=== PATIENT | female | born 1940 | race Caucasian/White ===

== ENCOUNTER 2018-10-11 20:45 | Inpatient (IN) | payer MEDICARE, OTHER ==
[~2018-10-11] VITALS: Ht 165.1 cm; Wt 54.6 kg
[~2018-10-11 20:45] MED LIST: ACIDOPHILUS1 EAC7 PO; ATIVAN1 MG ORAL; COLACE100 MG/10 GT; CRANBERRY500 M3 PO; DULCOLAX10 MG RC; FLAGYL500 MG ORAL; FLEET ENEMA133 ML RECTAL; FLORANEX TABLE1 EAC1 PO; HEPARIN SO5000 UNIT2 SUBQ; MAGNESIUM OXID400 M1 ORAL; MILK OF MA400 MG/51 ORAL; MULTIVITAMINS1 EAC2 ORAL; PROTEIN975 MG PO; TYLENOL EXTRA500 MG ORAL; TYLENOL650 MG/20. ORAL; ZOFRAN4 M1 ORAL; ZYPREXA5 MG ORAL
[2018-10-11 20:50] VITALS: BP 130/75
--- NOTE | 2018-10-11 21:08 | Emergency Room Report ---
History of Present Illness General Chief Complaint: Altered Mental Status Source: Patient, Medical Record Present Illness HPI Patient is a 77-year-old female sent in by nursing facility after increased altered mental status. Patient noted to be increasingly agitated. The patient had been noted to have prior history of chronic neurologic debilitation. Patient was noted to have been more combative with staff at her facility. The patient was noted to be weak to the right side Allergies: Coded Allergies: LITHIUM (Verified Allergy, Mild, 04/08/14) Patient History Past Medical History: see triage record Last Menstrual Period: unk Reviewed Nursing Documentation: PMH: Agreed; PSxH: Agreed Nursing Documentation-PMH Hx Cardiac Problems: Yes - SINUS NODE DISEASE Hx Hypertension: Yes Hx Cancer: No Hx Gastrointestinal Problems: Yes - ISCHEMIC COLITIS Hx Neurological Problems: Yes - DEMENTIA Hx Cerebrovascular Accident: Yes Hx Neurologic Surgery: No Review of Systems All Other Systems: limited - by poor historian Physical Exam Vital Signs Date Time Temp Pulse Resp B/P (MAP) Pulse Ox O2 Delivery O2 Flow Rate FiO2 10/11/18 20:50 96.3 88 24 122/79 95 Room Air General Appearance: Chronically Ill Eyes: bilateral eye PERRL ENT: dry mucus membranes Neck: limited range of motion Respiratory: lungs clear, normal breath sounds Cardiovascular #1: normal peripheral pulses, regular rate, rhythm Gastrointestinal: normal bowel sounds, non tender, no mass Neurologic: alert, motor weakness - right upper extremity contracted, other - right eye ptosis Psychiatric: anxious Skin: normal inspection Medical Decision Making Diagnostic Impression: Primary Impression: Altered mental status Additional Impressions: UTI (urinary tract infection) Dehydration ER Course Patient presented for altered mental status.Differential diagnosis included but was not limited to ischemic stroke, subarachnoid hemorrhage, hypoglycemia, spinal cord injury, neurodegenerative disorder, urinary tract infection, hypoxemia.Because of complexity of patient's case laboratory testing and imaging studies were ordered.Laboratory testing showed evidence of a urinary tract infection. Patient had initial elevation of lactic acid. Patient was given IV fluids as well as IV antibiotics after blood cultures are obtained. Patient was noted to have improvement in acidosis after medications. Dr. Cruz Velazco was contacted for inpatient management due to covering physician for Dr. Coyle. Labs Test 10/11/18 21:40 10/11/18 22:20 10/11/18 23:30 White Blood Count 14.1 K/UL (4.8-10.8) Red Blood Count 4.71 M/UL (4.20-5.40) Hemoglobin 14.3 G/DL (12.0-16.0) Hematocrit 41.6 % (37.0-47.0) Mean Corpuscular Volume 88 FL (80-99) Mean Corpuscular Hemoglobin 30.4 PG (27.0-31.0) Mean Corpuscular Hemoglobin Concent 34.4 G/DL (32.0-36.0) Red Cell Distribution Width 11.6 % (11.6-14.8) Platelet Count 203 K/UL (150-450) Mean Platelet Volume 10.8 FL (6.5-10.1) Neutrophils (%) (Auto) 68.9 % (45.0-75.0) Lymphocytes (%) (Auto) 24.6 % (20.0-45.0) Monocytes (%) (Auto) 5.6 % (1.0-10.0) Eosinophils (%) (Auto) 0.3 % (0.0-3.0) Basophils (%) (Auto) 0.6 % (0.0-2.0) Sodium Level 145 MMOL/L (136-145) Potassium Level 4.5 MMOL/L (3.5-5.1) Chloride Level 108 MMOL/L (98-107) Carbon Dioxide Level 24 MMOL/L (21-32) Anion Gap 13 mmol/L (5-15) Blood Urea Nitrogen 20 mg/dL (7-18) Creatinine 1.2 MG/DL (0.55-1.30) Estimat Glomerular Filtration Rate mL/min (>60) Glucose Level 113 MG/DL (74-106) Calcium Level 9.9 MG/DL (8.5-10.1) Phosphorus Level 3.1 MG/DL (2.5-4.9) Magnesium Level 1.6 MG/DL (1.5-2.4) Total Bilirubin 0.3 MG/DL (0.2-1.0) Aspartate Amino Transf (AST/SGOT) 28 U/L (15-37) Alanine Aminotransferase (ALT/SGPT) 26 U/L (12-78) Alkaline Phosphatase 87 U/L (46-116) Total Creatine Kinase 172 U/L (26-140) Creatine Kinase MB 5.0 NG/ML (0.0-3.6) Creatine Kinase MB Relative Index 2.9 Troponin I 0.014 ng/mL (0.000-0.056) Total Protein 8.3 G/DL (6.4-8.2) Albumin 3.8 G/DL (3.4-5.0) Globulin 4.5 g/dL Albumin/Globulin Ratio 0.8 (1.0-2.7) Lipase 153 U/L (73-393) Urine Color Yellow Urine Appearance Cloudy Urine pH 5 (4.5-8.0) Urine Specific Monette 1.010 (1.005-1.035) Urine Protein 2+ (NEGATIVE) Urine Glucose (UA) Negative (NEGATIVE) Urine Ketones 1+ (NEGATIVE) Urine Blood 3+ (NEGATIVE) Urine Nitrite Negative (NEGATIVE) Urine Bilirubin Negative (NEGATIVE) Urine Urobilinogen 1 MG/DL (0.0-1.0) Urine Leukocyte Esterase 3+ (NEGATIVE) Urine RBC 0-2 /HPF (0 - 2) Urine WBC Tntc /HPF (0 - 2) Urine Squamous Epithelial Cells Few /LPF (NONE/OCC) Urine Bacteria Many /HPF (NONE) Lactic Acid Level 0.30 mmol/L (0.66-2.22) Last Vital Signs Date Time Temp Pulse Resp B/P (MAP) Pulse Ox O2 Delivery O2 Flow Rate FiO2 10/11/18 20:50 96.3 88 24 122/79 95 Room Air Status: improved Disposition: ADMITTED INPATIENT Condition: Sabino Browning MD Oct 11, 2018 21:08
[2018-10-11] MEDS ORDERED: LORazepam Inj 2mg/ml 1ml IV ONE (21:45)
[2018-10-11 22:23] LABS: BASOPHILS % (AUTO) 0.6 % (0.0-2.0); EOSINOPHILS % (AUTO) 0.3 % (0.0-3.0); HEMATOCRIT 41.6 % (37.0-47.0); HEMOGLOBIN 14.3 G/DL (12.0-16.0); LYMPHOCYTES % (AUTO) 24.6 % (20.0-45.0); MEAN CORPUSCULAR VOLUME 88 FL (80-99); MONOCYTES % (AUTO) 5.6 % (1.0-10.0); NEUTROPHILS % (AUTO) 68.9 % (45.0-75.0); PLATELET COUNT 203 K/UL (150-450); RED BLOOD COUNT 4.71 M/UL (4.20-5.40); RED CELL DISTRIBUTION WIDTH 11.6 % (11.6-14.8); WHITE BLOOD COUNT 14.1 K/UL (4.8-10.8)
[2018-10-11 22:34] LABS: ANION GAP 13 mmol/L (5-15); BLOOD UREA NITROGEN 20 mg/dL (7-18); CALCIUM 9.9 MG/DL (8.5-10.1); CARBON DIOXIDE 24 MMOL/L (21-32); CHLORIDE 108 MMOL/L (98-107); CREATININE 1.2 MG/DL (0.55-1.30); POTASSIUM 4.5 MMOL/L (3.5-5.1); SODIUM 145 MMOL/L (136-145)
[2018-10-11 22:40] LABS: APPEARANCE,URINE CLOUDY; BILIRUBIN, URINE NEGATIVE (NEGATIVE); GLUCOSE, URINE (UA) NEGATIVE (NEGATIVE); KETONES,URINE 1+ (NEGATIVE); LEUKOCYTE ESTERASE ,URINE 3+ (NEGATIVE); NITRITE,URINE NEGATIVE (NEGATIVE); PH,URINE 5 (4.5-8.0); PROTEIN,URINE 2+ (NEGATIVE); UROBILINOGEN,URINE 1 MG/DL (0.0-1.0)
[2018-10-11 22:42] LABS: COLOR,URINE YELLOW
[2018-10-11 22:51] LABS: ASPARTATE AMINO TRANSFERASE 28 U/L (15-37); BILIRUBIN,TOTAL 0.3 MG/DL (0.2-1.0); PHOSPHORUS 3.1 MG/DL (2.5-4.9)
[2018-10-11 22:52] LABS: ALANINE AMINOTRANSFERASE 26 U/L (12-78); ALBUMIN 3.8 G/DL (3.4-5.0); ALBUMIN/GLOBULIN RATIO 0.8 (1.0-2.7); ALKALINE PHOSPHATASE 87 U/L (46-116); CREATINE KINASE 172 U/L (26-140)
[2018-10-11 23:00] VITALS: BP 138/81
[2018-10-12] MEDS ORDERED: cefTRIAXone 1 GM in D5W 55 ML IVPB ONE (00:15)
[2018-10-12 00:30] VITALS: BP 126/78
[2018-10-12 01:00] VITALS: BP 150/66
[2018-10-12] MEDS ORDERED: Milk of Magnesia 30ml Ud ORAL PRN (03:00)
[2018-10-12] MEDS: LORazepam 1mg tab ORAL PRN ×3 (04:45→20:24)
[2018-10-12 06:00] VITALS: BP 150/62
[2018-10-12] MEDS: Piperacillin/Tazobactam 3.375 GM in D5W 110 ML IVPB SCH ×3 (06:13→21:38)
[2018-10-12] MEDS ORDERED: Heparin 5000 units/ml inj SUBQ SCH (09:00)
--- NOTE | 2018-10-12 10:53 | Diagnostic Imaging Report ---
Indication: Shortness of breath Technique: One view of the chest Comparison: 04/28/2014 Findings: No acute infiltrates, effusions, or congestion. Tortuous calcified aorta. Normal heart size. Upper mediastinum unremarkable. No significant change Impression: No acute process.
--- NOTE | 2018-10-12 11:00 | History and Physical Report ---
DATE OF ADMISSION: 10/11/2018 CHIEF COMPLAINT: Altered mental status and agitation. HISTORY OF PRESENT ILLNESS: The patient is a 77-year-old female, known to me from prior admissions. She has history of ischemic colitis, dementia, conduction system disease. She presented with complaints of agitation for one day. The patient is a poor historian and is unable to provide any history. According to long-term staff, the patient has been more confused, agitated, and combative. On evaluation in the emergency room, the patient's vital signs were stable. She had an elevated white count of 14,000, elevated lactic acid level of 3. She had evidence of urinary tract infection on her urinalysis. The patient was pancultured. IV fluids and antibiotics have been instituted. The patient is now admitted for further evaluation and care. She remains confused, combative, and agitated. PAST MEDICAL HISTORY: As above. PAST SURGICAL HISTORY: None. CURRENT MEDICATIONS: Reconciled and reviewed. ALLERGIES: Edson. FAMILY HISTORY: Noncontributory. SOCIAL HISTORY: There is no known history of tobacco, ethanol, or drugs. REVIEW OF SYSTEMS: From the patient is unobtainable. PHYSICAL EXAMINATION: VITAL SIGNS: Temperature 97.6, pulse 72, respirations 18, and blood pressure 150/66. GENERAL: The patient is a well-developed, chronically ill-appearing female, in no apparent distress. She is alert, but confused. HEART: Regular rate and rhythm. LUNGS: Clear. ABDOMEN: Soft, nontender, nondistended. EXTREMITIES: Without clubbing, cyanosis, or edema. The patient moves all four extremities. NEUROLOGIC: Because of her confusion, she is unable to cooperate with neurologic exam. LABORATORY DATA: Showed sodium 145, potassium 4.5, BUN 20, creatinine is 1.2. Lactic acid level was 3. White count 14,000. Chest x-ray per report was clear. ASSESSMENT: This is an elderly female, admitted with complaints of: 1. Altered mental status and encephalopathy secondary to sepsis from urinary tract infection. 2. Sepsis. 3. UTI. 4. Toxic metabolic encephalopathy. 5. History of conduction system disease. 6. History of ischemic colitis. PLAN: IV antibiotics. Follow up cultures. IV hydration. ID and Cardiology evaluations will be obtained. The patient will be continued on DVT and stress ulcer prophylaxis. Cruz Velazco M.D. DR: Eloisa JOB#: [id number] CC:
--- NOTE | 2018-10-12 13:48 | Diagnostic Imaging Report ---
Indication: Abdominal pain Technique: Spiral acquisitions obtained through the abdomen and pelvis. No oral contrast utilized, per emergency room physician request No IV contrast utilized, per referring physician request.. Multiplanar reconstructions were generated. Total dose length product 619.77 mGycm. CTDIvol(s) 13.21 mGy. Dose reduction achieved using automated exposure control Comparison: None Findings: Dense stool is seen within the colon. This distends the rectum to diameter of 7 cm. No rectal wall thickening or perirectal inflammation demonstrated. The appendix is not definitely identified, but no findings to suggest acute appendicitis are evident. No small bowel distention. No free or loculated intraperitoneal gas or fluid. The distal esophagus, stomach, duodenum are unremarkable. The liver demonstrates a subcentimeter low-attenuation lesion in the left hepatic lobe. The gallbladder, bile ducts, spleen, pancreas, adrenals, kidneys are all unremarkable. No retroperitoneal or mesenteric mass or adenopathy. No pelvic mass or adenopathy. The uterus and adnexa are unremarkable except for uterine arcuate artery calcifications. The bladder is empty, contains a Pfeiffer catheter. The bones are osteoporotic. There is grade 1-2 spondylolisthesis of L5 on S1, although no pars defect is evident; this is most likely due to degenerative facet arthrosis. There is extensive degenerative spondylosis elsewhere in the spine, as well as possibly areas of spinal stenosis. The included lung bases demonstrate calcific scarring in the right lower lobe, as well as some calcification in the left posterior costophrenic sulcus Impression: Evidence of constipation and rectal fecal impaction No acute process otherwise. Subcentimeter left lobe liver lesion, too small to characterize, most likely benign cyst or bile hamartoma Extensive degenerative spondylosis, as described Other findings as noted, including right basilar pulmonary parenchymal calcific scarring and left basilar granulomatous disease, Pfeiffer catheter, uterine arcuate artery calcifications The CT scanner at [facility] is accredited by the [employer] and the scans are performed using protocols designed to limit radiation exposure to as low as reasonably achievable to attain images of sufficient resolution adequate for diagnostic evaluation.
--- NOTE | 2018-10-12 13:50 | Diagnostic Imaging Report ---
Indications: Altered mental status Technique: Spiral acquisitions obtained through the brain. Angled axial and coronal 5 x 5 mm slices were reconstructed. Total dose length product 1421.83 mGycm. CTDI vol(s) 70.38 mGy. Dose reduction achieved using automated exposure control Comparison: None. Findings: There is age-related enlargement of the ventricles and extra axial CSF spaces. There is periventricular deep white matter low-attenuation, consistent with chronic ischemic change. Normal rutledge-white differentiation. No acute intracranial hemorrhage nor edema. No mass effect nor midline shift. Visualized orbits are unremarkable. The sinuses and mastoids are clear. Impression: Chronic and age-related changes. Negative for acute intracranial bleed or mass effect The CT scanner at [facility] is accredited by the [employer] and the scans are performed using protocols designed to limit radiation exposure to as low as reasonably achievable to attain images of sufficient resolution adequate for diagnostic evaluation.
[2018-10-12 20:00] VITALS: BP 146/78
[2018-10-12] MEDS: OLANZapine 2.5mg tab ORAL SCH (20:24)
[2018-10-12] MEDS: Heparin 5000 units/ml inj SUBQ SCH (20:24)
[2018-10-13] VITALS: BP 128/53
[2018-10-13 04:00] VITALS: BP 133/76
[2018-10-13] MEDS: Piperacillin/Tazobactam 3.375 GM in D5W 110 ML IVPB SCH ×3 (05:20→22:08)
[2018-10-13 07:05] LABS: ALANINE AMINOTRANSFERASE 16 U/L (12-78); ALBUMIN 2.6 G/DL (3.4-5.0); ALBUMIN/GLOBULIN RATIO 0.7 (1.0-2.7); ALKALINE PHOSPHATASE 65 U/L (46-116); ANION GAP 8 mmol/L (5-15); ASPARTATE AMINO TRANSFERASE 22 U/L (15-37); BILIRUBIN,TOTAL 0.3 MG/DL (0.2-1.0); BLOOD UREA NITROGEN 16 mg/dL (7-18); CALCIUM 8.7 MG/DL (8.5-10.1); CARBON DIOXIDE 26 MMOL/L (21-32); CHLORIDE 111 MMOL/L (98-107); CREATININE 0.8 MG/DL (0.55-1.30); POTASSIUM 3.8 MMOL/L (3.5-5.1); SODIUM 145 MMOL/L (136-145)
[2018-10-13 07:18] LABS: BASOPHILS % (AUTO) 0.5 % (0.0-2.0); EOSINOPHILS % (AUTO) 1.4 % (0.0-3.0); HEMATOCRIT 38.2 % (37.0-47.0); HEMOGLOBIN 12.9 G/DL (12.0-16.0); LYMPHOCYTES % (AUTO) 38.9 % (20.0-45.0); MEAN CORPUSCULAR VOLUME 88 FL (80-99); MONOCYTES % (AUTO) 5.2 % (1.0-10.0); PLATELET COUNT 138 K/UL (150-450); RED BLOOD COUNT 4.32 M/UL (4.20-5.40); RED CELL DISTRIBUTION WIDTH 12.1 % (11.6-14.8); WHITE BLOOD COUNT 8.4 K/UL (4.8-10.8)
--- NOTE | 2018-10-13 07:55 | General Progress Note ---
Assessment/Plan Problem List: (1) Sepsis ICD Codes: A41.9 - Sepsis, unspecified organism SNOMED: 96450926 (2) Tachycardia ICD Codes: R00.0 - Tachycardia, unspecified SNOMED: 9088416 (3) Dehydration ICD Codes: E86.0 - Dehydration SNOMED: 56105120 (4) UTI (urinary tract infection) (5) Altered mental status ICD Codes: R41.82 - Altered mental status, unspecified SNOMED: 758122194 Status: stable Assessment/Plan iv abx follow up cultures psych rx dvt/stress ulcer prophylaxis Subjective ROS Limited/Unobtainable: Yes Constitutional: Reports: no symptoms HEENT: Reports: no symptoms Cardiovascular: Reports: no symptoms Respiratory: Reports: no symptoms Gastrointestinal/Abdominal: Reports: no symptoms Genitourinary: Reports: no symptoms Neurologic/Psychiatric: Reports: pre-existing deficit Endocrine: Reports: no symptoms Hematologic/Lymphatic: Reports: no symptoms Allergies: Coded Allergies: LITHIUM (Verified Allergy, Mild, 04/08/14) All Systems: reviewed and negative except above Subjective no events. confused at baseline. no fevers. on iv abx. ucx pending Objective Last 24 Hour Vital Signs Date Time Temp Pulse Resp B/P (MAP) Pulse Ox O2 Delivery O2 Flow Rate FiO2 10/13/18 04:00 98.0 78 18 133/76 (95) 98 10/13/18 00:00 97.7 60 17 128/53 (78) 99 10/12/18 21:00 Room Air 10/12/18 20:00 98.5 82 16 146/78 (100) 97 10/12/18 09:00 Room Air Intake and Output 10/12/18 10/13/18 19:00 07:00 Intake Total 1270.0 ml 512.5 ml Output Total 500 ml 750 ml Balance 770.0 ml -237.5 ml Intake Oral 930 ml IV Total 340.0 ml 512.5 ml Output Urine Total 500 ml 750 ml # Bowel Movements 3 Laboratory Tests 10/13/18 06:28: White Blood Count 8.4, Red Blood Count 4.32, Hemoglobin 12.9, Hematocrit 38.2, Mean Corpuscular Volume 88, Mean Corpuscular Hemoglobin 29.9, Mean Corpuscular Hemoglobin Concent 33.8, Red Cell Distribution Width 12.1, Platelet Count 138L, Mean Platelet Volume 14.1H, Neutrophils (%) (Auto) 54.0, Lymphocytes (%) (Auto) 38.9, Monocytes (%) (Auto) 5.2, Eosinophils (%) (Auto) 1.4, Basophils (%) (Auto ) 0.5, Sodium Level 145, Potassium Level 3.8, Chloride Level 111H, Carbon Dioxide Level 26, Anion Gap 8, Blood Urea Nitrogen 16, Creatinine 0.8, Estimat Glomerular Filtration Rate , Glucose Level 84, Calcium Level 8.7, Total Bilirubin 0.3, Aspartate Amino Transf (AST/SGOT) 22, Alanine Aminotransferase ( ALT/SGPT) 16, Alkaline Phosphatase 65, Total Protein 6.3L, Albumin 2.6L, Globulin 3.7, Albumin/Globulin Ratio 0.7L Height (Feet): 5 Height (Inches): 5.00 Weight (Pounds): 120 General Appearance: WD/WN, confused Neck: supple Cardiovascular: regular rhythm Respiratory/Chest: lungs clear Abdomen: normal bowel sounds, non tender, soft, no organomegaly Neurologic: alert, disoriented Cruz Velazco MD Oct 13, 2018 07:55
[2018-10-13 08:00] VITALS: BP 110/86
[2018-10-13] MEDS: Heparin 5000 units/ml inj SUBQ SCH ×2 (09:00→21:00)
--- NOTE | 2018-10-13 10:44 | Progress Note ---
DATE: 10/13/2018 CARDIOLOGY PROGRESS NOTE SUBJECTIVE: The patient remains confused at baseline, however, a little more alert. No apparent shortness of breath. OBJECTIVE: VITAL SIGNS: Blood pressure 132/76, pulse 78, respiratory rate 18, and afebrile. HEENT: Oropharynx clear. Mucous membranes moist. NECK: Supple. LUNGS: Clear. CARDIAC: Regular. Normal S1, S2 with no murmur. ABDOMEN: Soft. EXTREMITIES: No edema. LABORATORY DATA: Lactic acid level on the 20th had normalized. BUN 16, creatinine 0.8, potassium 3.8. Albumin 2.6. White count 8.4 and hemoglobin 12.9. Urine culture is pending. IMPRESSION: 1. Metabolic and toxic encephalopathies, now improved. 2. Sinus tachycardia, resolved. 3. UTI with possible sepsis. 4. Lactic acidosis, resolved. 5. Hypovolemia and dehydration, corrected. PLAN: 1. Await cultures. 2. Continue antibiotics. 3. Encourage oral intake. 4. Taper off IV fluids as oral intake improves. Thaddeus Pavon M.D. DR: OLEKSANDR JOB#: [id number] CC:
[2018-10-13 12:00] VITALS: BP 160/85
[2018-10-13 16:00] VITALS: BP 155/88
[2018-10-13 20:00] VITALS: BP 148/75
[2018-10-13] MEDS: OLANZapine 2.5mg tab ORAL SCH (20:57)
[2018-10-14] VITALS: BP 156/101
[2018-10-14] MEDS: LORazepam 1mg tab ORAL PRN (00:07)
[2018-10-14 04:00] VITALS: BP 158/99
[2018-10-14] MEDS: Piperacillin/Tazobactam 3.375 GM in D5W 110 ML IVPB SCH (06:00)
--- NOTE | 2018-10-14 08:17 | General Progress Note ---
Assessment/Plan Problem List: (1) Sepsis ICD Codes: A41.9 - Sepsis, unspecified organism SNOMED: 87132407 (2) Tachycardia ICD Codes: R00.0 - Tachycardia, unspecified SNOMED: 8799693 (3) Dehydration ICD Codes: E86.0 - Dehydration SNOMED: 10840717 (4) UTI (urinary tract infection) (5) Altered mental status ICD Codes: R41.82 - Altered mental status, unspecified SNOMED: 289388483 Status: stable, progressing Assessment/Plan IM abx follow up cultures psych rx dvt/stress ulcer prophylaxis Subjective ROS Limited/Unobtainable: No Constitutional: Reports: malaise, weakness HEENT: Reports: no symptoms Cardiovascular: Reports: no symptoms Respiratory: Reports: no symptoms Gastrointestinal/Abdominal: Reports: no symptoms Genitourinary: Reports: no symptoms Neurologic/Psychiatric: Reports: pre-existing deficit Endocrine: Reports: no symptoms Hematologic/Lymphatic: Reports: no symptoms Allergies: Coded Allergies: LITHIUM (Verified Allergy, Mild, 04/08/14) All Systems: reviewed and negative except above Subjective pulled out of iv. RN unable to re-insert. eating well. ucx with gnr Objective Last 24 Hour Vital Signs Date Time Temp Pulse Resp B/P (MAP) Pulse Ox O2 Delivery O2 Flow Rate FiO2 10/14/18 04:00 98.0 105 17 158/99 (118) 98 10/14/18 00:00 98.0 94 18 156/101 (119) 100 10/13/18 21:00 Room Air 10/13/18 20:00 98.1 74 16 148/75 (99) 100 10/13/18 16:00 98.1 94 155/88 (110) 10/13/18 12:00 98.3 88 20 160/85 (110) 99 10/13/18 09:00 Room Air Intake and Output 10/13/18 10/14/18 19:00 07:00 Intake Total 1270.0 ml 410.0 ml Output Total 600 ml 800 ml Balance 670.0 ml -390.0 ml Intake Oral 800 ml IV Total 470.0 ml 410.0 ml Output Urine Total 600 ml 800 ml Height (Feet): 5 Height (Inches): 5.00 Weight (Pounds): 120 Objective General Appearance: WD/WN, confused Neck: supple Cardiovascular: regular rhythm Respiratory/Chest: lungs clear Abdomen: normal bowel sounds, non tender, soft, no organomegaly Neurologic: alert, disoriented Cruz Velazco MD Oct 14, 2018 08:17
[2018-10-14] MEDS: Heparin 5000 units/ml inj SUBQ SCH ×2 (09:00→21:00)
[2018-10-14] MEDS ORDERED: Vancomycin 1gm/D5W 275ml IVPB SCH ×2 (10:00)
[2018-10-14] MEDS ORDERED: Levofloxacin 500mg tab ORAL SCH (10:15)
--- NOTE | 2018-10-14 11:00 | Consultation ---
DATE OF CONSULTATION: 10/14/2018 INFECTIOUS DISEASE CONSULTATION CONSULTING PHYSICIAN: Heladio Hogue M.D. REFERRING PHYSICIAN: Cruz Velazco M.D. REASON FOR CONSULTATION: Sepsis. HISTORY OF PRESENTING ILLNESS: This is a 77-year-old lady with history of ischemic colitis, dementia, and conduction system disease who came in with agitation and leukocytosis. She was found to have a urinary tract infection and sepsis. She is refusing IV antibiotics and is combative and agitated. An Infectious Disease consultation has been obtained. PAST MEDICAL HISTORY: 1. Ischemic colitis. 2. Dementia. 3. Conduction system disease. SOCIAL HISTORY: No history of smoking, alcohol, or drug use. FAMILY HISTORY: Unknown. REVIEW OF SYSTEMS: RESPIRATORY: No fever or chills. She said she has a cough. No shortness of breath or chest pain. CARDIAC: No chest pain. No palpitations. No dizziness. No syncope. GASTROINTESTINAL: No nausea. No vomiting. No abdominal pain or diarrhea. MEDICATIONS: As an inpatient, she is on vancomycin, ceftriaxone, Zosyn, Zyprexa, subcutaneous heparin, multivitamin, Tylenol, Zofran, Ativan, and milk of magnesia. ALLERGIES: She is allergic to lithium. PHYSICAL EXAMINATION: VITAL SIGNS: Temperature of 98 degrees, T-max of 98.5 degrees, pulse of 105, respiratory rate 17, blood pressure 158/99, and O2 sat of 98%. HEENT: Pupils equally reactive to light and accommodation. Mouth appears clean without thrush. NECK: Supple. No adenopathy. No JVD. CARDIOVASCULAR: Regular rate and rhythm. No murmurs. LUNGS: Clear to auscultation bilaterally. No crackles. No wheezes. ABDOMEN: Soft and nontender. No organomegaly. EXTREMITIES: No cyanosis. No clubbing. No edema. LABORATORY AND DIAGNOSTIC DATA: White count of 14 on 10/11/2018, white count of 8.4 today, hemoglobin 12.9, hematocrit 38.2, MCV 88, platelet count of 138,000, and neutrophils of 54%. Sodium 145, potassium 3.8, chloride 111, bicarb 26, BUN 16, creatinine 0.8, glucose 84, and calcium 8.7. Total bilirubin 0.3, AST 22, ALT 16, alkaline phosphatase 65, total protein 6.3, albumin 2.6, and lipase of 153. UA showing too numerous to count white cells. Rectal swab was negative for VRE. Nasal swab was negative for MRSA. On 10/11/2018, urine culture growing gram-negative rods. On 10/11/2018, blood culture growing coagulase-negative Staph. CT abdomen and pelvis showing rectal fecal impaction, left lobe liver lesion, possibly a cyst, extensive degenerative spondylosis noted. CT head showing chronic age-related changes. Negative for bleed or mass effect. Chest x-ray is showing no acute process. ASSESSMENT: This is a 77-year-old lady with history of dementia, conduction system disease, and ischemic colitis who comes in with agitated and confusion and is found to have, 1. Urinary tract infection with gram-negative rods. The patient is refusing all IV antibiotics. 2. Positive blood cultures with coagulase-negative Staph, most likely appears to be contaminant. 3. Leukocytosis has resolved. PLAN: 1. As the patient is refusing IV antibiotics, we will discontinue intravenous vancomycin, Zosyn, and ceftriaxone. 2. We will start the patient on oral Levaquin . 3. We will follow up cultures. I would like to thank, Dr. Velazco, for this consultation. Heladio Hogue M.D. DR: NICCI JOB#: [id number] CC: Cruz Velazco M.D.
[2018-10-14] MEDS: OLANZapine 2.5mg tab ORAL SCH (21:31)
[2018-10-15 08:00] VITALS: BP 157/89
[2018-10-15] MEDS: Heparin 5000 units/ml inj SUBQ SCH ×2 (09:00→20:56)
[2018-10-15] MEDS ORDERED: Vancomycin 500mg/D5W 110ml IVPB SCH ×2 (10:00)
[2018-10-15 12:00] VITALS: BP 124/67
--- NOTE | 2018-10-15 12:53 | General Progress Note ---
Assessment/Plan Problem List: (1) Sepsis ICD Codes: A41.9 - Sepsis, unspecified organism SNOMED: 21102025 (2) Tachycardia ICD Codes: R00.0 - Tachycardia, unspecified SNOMED: 9142267 (3) Dehydration ICD Codes: E86.0 - Dehydration SNOMED: 25762591 (4) UTI (urinary tract infection) (5) Altered mental status ICD Codes: R41.82 - Altered mental status, unspecified SNOMED: 779856975 Status: stable, progressing Assessment/Plan IM abx reorder- pt refusing oral follow up cultures psych rx dvt/stress ulcer prophylaxis Subjective ROS Limited/Unobtainable: Yes Constitutional: Reports: malaise, weakness HEENT: Reports: no symptoms Cardiovascular: Reports: no symptoms Respiratory: Reports: no symptoms Gastrointestinal/Abdominal: Reports: no symptoms Genitourinary: Reports: no symptoms Neurologic/Psychiatric: Reports: anxiety, emotional problems Endocrine: Reports: no symptoms Hematologic/Lymphatic: Reports: no symptoms Allergies: Coded Allergies: LITHIUM (Verified Allergy, Mild, 04/08/14) All Systems: reviewed and negative except above Subjective pulled out of iv. RN unable to re-insert. refusing po meds including abx. Objective Last 24 Hour Vital Signs Date Time Temp Pulse Resp B/P (MAP) Pulse Ox O2 Delivery O2 Flow Rate FiO2 10/15/18 09:00 Room Air 10/15/18 08:00 97.9 74 18 157/89 (111) 98 10/14/18 21:00 Room Air Intake and Output 10/14/18 10/15/18 19:00 07:00 Intake Total 940 ml Output Total 1000 ml 950 ml Balance -60 ml -950 ml Intake Oral 940 ml Output Urine Total 1000 ml 950 ml # Voids 1 Height (Feet): 5 Height (Inches): 5.00 Weight (Pounds): 120 Objective General Appearance: WD/WN, confused Neck: supple Cardiovascular: regular rhythm Respiratory/Chest: lungs clear Abdomen: normal bowel sounds, non tender, soft, no organomegaly Neurologic: alert, disoriented Cruz Velazco MD Oct 15, 2018 12:53
[2018-10-15] MEDS ORDERED: LORazepam Inj 2mg/ml 1ml IV PRN (12:57)
[2018-10-15] MEDS: cefTRIAXone 1gm/D5W 55ml IVPB SCH ×2 (14:51)
[2018-10-15] MEDS ORDERED: Lidocaine 1% MPF 10mg/ml 5ml IM SCH (15:00)
[2018-10-15] MEDS ORDERED: cefTRIAXone 1gm/D5W 55ml IVPB SCH ×2 (15:00)
[2018-10-15 16:00] VITALS: BP 121/67
[2018-10-15 20:05] VITALS: BP 158/78
[2018-10-15] MEDS: OLANZapine 2.5mg tab ORAL SCH (20:53)
[2018-10-16] VITALS (8 sets, daily range): BP systolic 106–158; BP diastolic 69–86
[2018-10-16] MEDS: Heparin 5000 units/ml inj SUBQ SCH ×2 (08:15→20:40)
--- NOTE | 2018-10-16 09:16 | General Progress Note ---
Assessment/Plan Problem List: (1) Sepsis ICD Codes: A41.9 - Sepsis, unspecified organism SNOMED: 03373398 (2) Tachycardia ICD Codes: R00.0 - Tachycardia, unspecified SNOMED: 9477504 (3) Dehydration ICD Codes: E86.0 - Dehydration SNOMED: 37222577 (4) UTI (urinary tract infection) (5) Altered mental status ICD Codes: R41.82 - Altered mental status, unspecified SNOMED: 903668884 Status: stable, progressing, tolerating diet Assessment/Plan iv abx follow up cultures psych rx dvt/stress ulcer prophylaxis dc planning tomorrow to snf Subjective ROS Limited/Unobtainable: Yes Constitutional: Reports: malaise, weakness HEENT: Reports: no symptoms Cardiovascular: Reports: no symptoms Respiratory: Reports: no symptoms Gastrointestinal/Abdominal: Reports: no symptoms Genitourinary: Reports: no symptoms Neurologic/Psychiatric: Reports: pre-existing deficit Endocrine: Reports: no symptoms Hematologic/Lymphatic: Reports: no symptoms Allergies: Coded Allergies: LITHIUM (Verified Allergy, Mild, 04/08/14) All Systems: reviewed and negative except above Subjective no events. IV abx resumed as pt was refusing to take po abx. Objective Last 24 Hour Vital Signs Date Time Temp Pulse Resp B/P (MAP) Pulse Ox O2 Delivery O2 Flow Rate FiO2 10/16/18 08:00 97.4 70 20 107/77 (87) 97 10/16/18 05:20 97.0 10/16/18 04:00 95.6 65 20 156/69 (98) 97 10/16/18 01:33 97.2 90 18 157/85 (109) 98 10/16/18 00:00 97.2 90 18 157/85 (109) 98 10/15/18 21:00 Room Air 10/15/18 20:05 97.9 75 18 158/78 (104) 98 10/15/18 16:00 97.8 76 18 121/67 (85) 99 10/15/18 12:00 98.1 77 18 124/67 (86) 100 Intake and Output 10/15/18 10/16/18 19:00 07:00 Intake Total 295 ml 850 ml Output Total 650 ml 1050 ml Balance -355 ml -200 ml Intake Oral 240 ml 400 ml IV Total 55 ml 450 ml Output Urine Total 650 ml 1050 ml Height (Feet): 5 Height (Inches): 5.00 Weight (Pounds): 120 Objective General Appearance: WD/WN, confused Neck: supple Cardiovascular: regular rhythm Respiratory/Chest: lungs clear Abdomen: normal bowel sounds, non tender, soft, no organomegaly Neurologic: alert, disoriented Cruz Velazco MD Oct 16, 2018 09:16
--- NOTE | 2018-10-16 13:55 | Infectious Diseases Prog Note ---
Assessment/Plan Assessment/Plan A; Sepsis UTI with E. coli Dementia Acidosis AMS P: Continue Rocephin Discontinue Levaquin Subjective ROS Limited/Unobtainable: Yes Constitutional: Reports: no symptoms Neurologic: Reports: confusion Allergies: Coded Allergies: LITHIUM (Verified Allergy, Mild, 04/08/14) Objective Vital Signs Last 24 Hour Vital Signs Date Time Temp Pulse Resp B/P (MAP) Pulse Ox O2 Delivery O2 Flow Rate FiO2 10/16/18 12:00 97.7 77 18 106/77 (87) 97 10/16/18 09:00 Room Air 10/16/18 08:00 97.4 70 20 107/77 (87) 97 10/16/18 05:20 97.0 10/16/18 04:00 95.6 65 20 156/69 (98) 97 10/16/18 01:33 97.2 90 18 157/85 (109) 98 10/16/18 00:00 97.2 90 18 157/85 (109) 98 10/15/18 21:00 Room Air 10/15/18 20:05 97.9 75 18 158/78 (104) 98 10/15/18 16:00 97.8 76 18 121/67 (85) 99 Height (Feet): 5 Height (Inches): 5.00 Weight (Pounds): 120 General Appearance: no acute distress HEENT: mucous membranes moist, other - poor dentition Respiratory/Chest: lungs clear Cardiovascular: normal rate Abdomen: soft, non tender Extremities: no edema Neurologic/Psychiatric: alert, responsive Current Medications Medications (Trade) Dose Ordered Sig/Joseph Route PRN Reason Start Time Stop Time Status Last Admin Dose Admin Acetaminophen (Tylenol) 650 mg Q4H PRN ORAL Mild Pain/Temp > 100.5 10/12/18 03:00 11/11/18 02:59 Ceftriaxone Sodium 1 gm/ Dextrose 55 ml @ 110 mls/hr Q24H IVPB 10/15/18 15:00 10/22/18 14:59 10/15/18 14:51 Heparin Sodium (Porcine) (Heparin 5000 units/ml) 5,000 units EVERY 12 HOURS SUBQ 10/12/18 21:00 11/11/18 20:59 10/12/18 20:24 Levofloxacin (Levaquin) 250 mg DAILY ORAL 10/15/18 09:00 10/22/18 08:59 10/16/18 08:14 Lorazepam (Ativan 2mg/ml 1ml) 2 mg Q4H PRN IV For Anxiety 10/15/18 12:57 10/22/18 12:56 Magnesium Hydroxide (Mom) 30 ml DAILYPRN PRN ORAL Constipation 10/12/18 03:00 11/11/18 02:59 10/16/18 05:06 Multivitamins (Multivitamins) 1 tab DAILY ORAL 10/12/18 09:00 11/11/18 08:59 10/15/18 09:33 Olanzapine (ZyPREXA) 2.5 mg QHS ORAL 10/12/18 21:00 11/11/18 20:59 10/15/18 20:53 Ondansetron HCl (Zofran) 4 mg Q6H PRN IVP Nausea & Vomiting 10/12/18 03:00 11/11/18 02:59 Sodium Chloride 1,000 ml @ 50 mls/hr Q20H IV 10/13/18 10:08 11/12/18 10:07 10/15/18 21:43 Jeffery Garcia MD Oct 16, 2018 13:55
[2018-10-16] MEDS: cefTRIAXone 1gm/D5W 55ml IVPB SCH ×2 (15:03)
[2018-10-16] MEDS: OLANZapine 2.5mg tab ORAL SCH (20:41)
[2018-10-17] VITALS: BP 166/91
[2018-10-17 00:20] VITALS: BP 151/87
--- NOTE | 2018-10-17 01:30 | Progress Note ---
DATE: 10/16/2018 CARDIOLOGY PROGRESS NOTE: SUBJECTIVE: The patient remains on IV antibiotics as she has refused oral therapy. OBJECTIVE: VITAL SIGNS: Blood pressure is labile 107/77, earlier up to 157/85, heart rate 65 to 90. She remains afebrile with no respiratory distress. LUNGS: Clear. CARDIAC: Regular rhythm and rate. Normal S1, S2 with a fourth heart sound. ABDOMEN: Soft. No bruits. No ascites. EXTREMITIES: No edema. IMPRESSION: 1. Toxic encephalopathy, improved. 2. UTI with sepsis, recovering. 3. Secondary sinus tachycardia, resolved. 4. Moderate protein-calorie malnutrition, on supplements. 5. Hypovolemia and dehydration, corrected. 6. Lactic acidosis on admission, now resolved. PLAN: 1. Maintain adequate hydration. 2. Complete antibiotic regimen. 3. Protein supplementation. 4. No additional cardiovascular therapy presently planned. Thaddeus Pavon M.D. DR: MIGUELITO JOB#: [id number] CC:
--- NOTE | 2018-10-17 02:00 | Consultation ---
DATE OF CONSULTATION: 10/12/2018 CARDIOLOGY CONSULTATION CONSULTING PHYSICIAN: Thaddeus Pavon M.D. REQUESTING PHYSICIAN: Cruz Velazco M.D. REASON FOR CONSULTATION: Acidosis, tachycardia, and encephalopathy. HISTORY OF PRESENT ILLNESS: This is a 77-year-old female. She resides at a [facility] facility. She presented to the hospital with agitation, confusion, and combative behavior. She was noted to have abnormal laboratory studies including a lactic acid level of 3. She was tachycardic. I have been asked to assist with cardiovascular care. PAST MEDICAL HISTORY: Cerebrovascular disease with dementia, ischemic colitis, hypertensive heart disease, conduction system disease of the heart. ALLERGIES: [place]. FAMILY HISTORY: Noncontributory. SOCIAL HISTORY: Negative for smoking, alcohol, or substance abuse. MEDICATIONS: Medications prior to admission, reviewed and reconciled. REVIEW OF SYSTEMS: Cannot be reliably obtained from the patient at this time. Pertinent data from records' review is outlined above. PHYSICAL EXAMINATION: VITAL SIGNS: Blood pressure 150/62, pulse 74, respiratory rate 20, afebrile. HEENT: Temporal wasting. Dry mucous membranes. NECK: Jugular venous pressure normal. LUNGS: Clear. CARDIAC: Regular rhythm and rate. Normal S1, S2 with a fourth heart sound. ABDOMEN: Soft, nontender. EXTREMITIES: No edema. LABORATORIES: EKG, sinus rhythm, nonspecific ST-T wave change. IMPRESSION: 1. Lactic acidosis. 2. UTI with sepsis. 3. Hypovolemia and dehydration. 4. Toxic and metabolic encephalopathy. 5. History of sinus node disease, asymptomatic. 6. History of ischemic colitis. 7. Cerebrovascular disease with dementia. PLAN: 1. Hydration. 2. Empiric antibiotics by IV route. 3. Avoid sedation. 4. DVT prophylaxis. 5. Observe for signs of symptomatic conduction system disease. Thaddeus Pavon M.D. DR: Gricel JOB#: [id number] CC:
[2018-10-17 04:00] VITALS: BP 148/92
[2018-10-17 08:00] VITALS: BP 159/78
[2018-10-17] MEDS: Heparin 5000 units/ml inj SUBQ SCH (08:28)
[2018-10-17] MEDS ORDERED: Fleet's Enema 133ml RECTAL ONE (09:00)
[2018-10-17] MEDS ORDERED: Fleet's Enema 133ml RECTAL SCH (10:00)
[2018-10-17 12:00] VITALS: BP 157/95
--- NOTE | 2018-10-17 12:10 | Infectious Diseases Prog Note ---
Assessment/Plan Assessment/Plan A; Sepsis resolved UTI with E. coli treated Dementia Acidosis AMS P: agree with discharge plan Subjective ROS Limited/Unobtainable: Yes Constitutional: Reports: no symptoms Allergies: Coded Allergies: LITHIUM (Verified Allergy, Mild, 04/08/14) Objective Vital Signs Last 24 Hour Vital Signs Date Time Temp Pulse Resp B/P (MAP) Pulse Ox O2 Delivery O2 Flow Rate FiO2 10/17/18 09:00 Room Air 10/17/18 09:00 Room Air 10/17/18 08:00 98.0 80 20 159/78 (105) 97 10/17/18 04:00 97.5 89 18 148/92 (110) 97 10/17/18 00:20 151/87 (108) 10/17/18 00:00 97.2 80 17 166/91 (116) 96 10/16/18 21:00 Room Air 10/16/18 20:00 97.7 80 17 158/86 (110) 98 10/16/18 16:00 98.2 75 18 155/80 (105) 98 Height (Feet): 5 Height (Inches): 5.00 Weight (Pounds): 120 HEENT: mucous membranes moist Respiratory/Chest: lungs clear Cardiovascular: normal rate Abdomen: soft, non tender Extremities: no edema, other - contracted hands Neurologic/Psychiatric: alert, responsive, disoriented Current Medications Medications (Trade) Dose Ordered Sig/Joseph Route PRN Reason Start Time Stop Time Status Last Admin Dose Admin Acetaminophen (Tylenol) 650 mg Q4H PRN ORAL Mild Pain/Temp > 100.5 10/12/18 03:00 11/11/18 02:59 Ceftriaxone Sodium 1 gm/ Dextrose 55 ml @ 110 mls/hr Q24H IVPB 10/15/18 15:00 10/22/18 14:59 10/16/18 15:03 Heparin Sodium (Porcine) (Heparin 5000 units/ml) 5,000 units EVERY 12 HOURS SUBQ 10/12/18 21:00 11/11/18 20:59 10/12/18 20:24 Lorazepam (Ativan 2mg/ml 1ml) 2 mg Q4H PRN IV For Anxiety 10/15/18 12:57 10/22/18 12:56 Magnesium Hydroxide (Mom) 30 ml DAILYPRN PRN ORAL Constipation 10/12/18 03:00 11/11/18 02:59 10/16/18 05:06 Multivitamins (Multivitamins) 1 tab DAILY ORAL 10/12/18 09:00 11/11/18 08:59 10/17/18 08:26 Olanzapine (ZyPREXA) 2.5 mg QHS ORAL 10/12/18 21:00 11/11/18 20:59 10/16/18 20:41 Ondansetron HCl (Zofran) 4 mg Q6H PRN IVP Nausea & Vomiting 10/12/18 03:00 11/11/18 02:59 Sodium Chloride 1,000 ml @ 50 mls/hr Q20H IV 10/13/18 10:08 11/12/18 10:07 10/16/18 15:03 Sodium Phosphate (Fleet's Sodium Phosl Enema) 133 ml ONCE RECTAL 10/17/18 10:00 10/17/18 14:00 10/17/18 09:20 Jeffery Garcia MD Oct 17, 2018 12:10
--- NOTE | 2018-10-17 18:30 | Discharge Summary ---
DATE OF ADMISSION: 10/11/2018 DATE OF DISCHARGE: 10/17/2018 ADMITTING DIAGNOSES: 1. Sepsis. 2. Altered mental status. 3. History of encephalopathy. 4. Hypertension. DISCHARGE DIAGNOSES: 1. Sepsis. 2. Altered mental status. 3. History of encephalopathy. 4. Hypertension. HOSPITAL DISCHARGE: The patient was admitted with complaints of altered mental status. She was diagnosed with sepsis secondary to urinary tract infection. She received intravenous antibiotics. She remained agitated and combative, refusing IV, and she is refusing medications at times. She did complete a full course of antibiotic therapy. On discharge, she is stable and she will be discharged back to the detention facility. She has completed all her antibiotics while in-house. DISCHARGE MEDICATIONS: Please see discharge medication list for discharge medications. DIET: Regular. ACTIVITIES: Ad-shahzad. FOLLOWUP: The patient will be followed up by her PMD at the detention facility. Cruz Velazco M.D. DR: MAEGAN JOB#: [id number] CC:
--- NOTE | 2018-10-18 02:00 | Progress Note ---
CARDIOLOGY PROGRESS NOTE SUBJECTIVE: The patient is more awake and alert and interactive. OBJECTIVE: VITAL SIGNS: Blood pressure 159/78, pulse 80, respiratory rate 20. No fevers. LUNGS: Clear. CARDIAC: Regular. ABDOMEN: Soft, no edema. IMPRESSION: 1. Urinary tract infection with sepsis, resolved. 2. Toxic encephalopathy, recovered. 3. Moderate protein calorie malnutrition, on supplements. 4. Sinus tachycardia secondary to acute infection and hypovolemia, resolved. 5. Hypovolemia and dehydration corrected. 6. Hypertensive heart disease, now with rising blood pressure trend. 7. Lactic acidosis, resolved. PLAN: 1. Off IV fluids. 2. Stable for [facility] facility. 3. Continue monitoring blood pressure parameters and advance antihypertensive regimen as the clinical condition warrants. Thaddeus Pavon M.D. DRDanielle BAKER JOB#: [id number] CC:
--- NOTE | 2018-10-19 18:06 | Cardiology Report ---
APPROVED REPORT EKG Measurement Heart [id number] Sinus tachycardia with short IA with frequent premature ventricular complexes Nonspecific ST abnormality Abnormal ECG
== END 2018-10-17 16:37 | DRG 720 ==
LOC: EDBD 20:45 → EMR 21:57 → 4E 22:08 → EDBEDREQ 22:49 → 4E 10-12 01:07
DX: A41.9 Sepsis, unspecified organism (principal); E44.0 Moderate protein-calorie malnutrition; G92 Toxic encephalopathy; E86.0 Dehydration; N39.0 Urinary tract infection, site not specified; I11.9 Hypertensive heart disease without heart failure; I10 Essential (primary) hypertension; F01.50 Vascular dementia, unspecified severity, without behavioral disturbance, psychotic disturbance, mood disturbance, and anxiety; Z88.8 Allergy status to other drugs, medicaments and biological substances; B96.20 Unspecified Escherichia coli [E. coli] as the cause of diseases classified elsewhere
CPT/HCPCS: 36415; 51702; 70450; 71045; 74176; 80053; 81003; 82550; 82553; 82962; 83605; 83690; 83735; 84100; 84484; 85025; 87040; 87081; 87086; 87181; 93005; 96361; 96365; 96375; 99284; 99285

== ENCOUNTER 2019-01-13 13:26 | Emergency (ER) | payer MEDICARE, OTHER ==
[~2019-01-13] VITALS: Ht 162.6 cm; Wt 54.4 kg
[2019-01-13] MEDS ORDERED: FLEET ENEMA133 ML RECTAL (13:35)
--- NOTE | 2019-01-13 13:36 | NUR ---
ED Nurse Note: PT. AAOX4. BROUGHT IN BY AMBULANCE FROM [facility] DUE TO R ARM PAIN X 2 MONTHS. PER EMS, PT. 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
[2019-01-13] MEDS ORDERED: Tetanus/Diptheria/Pertussis Vaccine 0.5ml Syr IM ONE (13:45)
[2019-01-13] MEDS ORDERED: Bacitracin Oint UD TOPIC ONE (13:45)
--- NOTE | 2019-01-13 13:54 | Emergency Room Report ---
History of Present Illness General Chief Complaint: Pain Source: Patient, EMS Present Illness HPI Patient presents with a rash in her right upper arm. She says that they've been treating her with A and D ointment. (Actually naftifine and flurandrenolide ) She's been asking for antibiotic ointment she says that they have not been giving it to her. She doesn't complain of pain in that area. She has contractures and 2 areas of the arm are in contact with each other. She denies any fevers or chills. The patient has been coughing. She has a history of distant smoking. She says that they've been closing the windows at her nursing facility which makes it difficult for her to get oxygen. The patient also complains about thirst. She denies any nausea, vomiting or diarrhea. She denies dysuria. There is no chest pain or abdominal pain. Patient suffers from schizophrenia. She's fairly coherent at this time but has some delusions. She states that her ILIA contacts needed to be treated for skin scab staph infections. CVA in past. Allergies: Coded Allergies: LITHIUM (Verified Allergy, Mild, 04/08/14) Patient History Past Medical History: see triage record Social History: Denies: smoking - prior Social History Narrative [facility] Last Menstrual Period: n/a Reviewed Nursing Documentation: PMH: Agreed; PSxH: Agreed Nursing Documentation-PMH Past Medical History: No History, Except For Hx Cardiac Problems: Yes - SINUS NODE DISEASE, cerebrovascular disease Hx Hypertension: Yes Hx Diabetes: Yes - type 2 Hx Cancer: No Hx Gastrointestinal Problems: Yes - ISCHEMIC COLITIS Hx Neurological Problems: Yes - DEMENTIA Hx Cerebrovascular Accident: Yes Hx Neurologic Surgery: No Review of Systems All Other Systems: negative except mentioned in HPI Physical Exam Vital Signs Date Time Temp Pulse Resp B/P (MAP) Pulse Ox O2 Delivery O2 Flow Rate FiO2 01/13/19 13:26 98.1 86 14 150/82 95 Room Air Sp02 EP Interpretation: reviewed, normal General Appearance: well appearing, no apparent distress, alert, Chronically Ill Head: normocephalic Eyes: bilateral eye normal inspection, bilateral eye PERRL, bilateral eye EOMI ENT: moist mucus membranes - poor dentition Neck: supple Respiratory: no respiratory distress, no retraction, rhonchi Cardiovascular #1: regular rate, rhythm Cardiovascular #2: 2+ radial (R) Gastrointestinal: normal inspection, normal bowel sounds, non tender, no mass, non-distended Musculoskeletal: back normal, other - Flexion contractures of the right upper extremity. Extensor contractions of both feet. Slight contractures of left upper arm but less than right. The contractures of her hand on the right-hand side also Neurologic: alert, speech normal, no Babinski, motor weakness Psychiatric: mood/affect normal, other - somewhat delusional Skin: warm/dry, other - Erythema and swelling in the antecubital fossa extending up the arm. Medical Decision Making Diagnostic Impression: Primary Impression: Cellulitis Qualified Codes: L03.113 - Cellulitis of right upper limb Additional Impression: Dehydration ER Course Patient presents with rash in her upper arm. Differential includes cellulitis, abscess, chronic irritation of the skin, fungal infection amongst others. We need to assess the severity of this by drawing labs including lactate. In addition we will treat with bacitracin and tetanus. An EKG and chest x-ray are indicated as she is coughing. EKG no injury. CXR no infiltrates. Labs with normal WBC. BUN elevated. UA clear. Patient NAD and not toxic or septic. Antibiotics begun here. Discussed with PMDs. Patient stable for outpatient observation and treatment. Laboratory Tests Test 01/13/19 14:06 01/13/19 14:56 White Blood Count 6.8 K/UL (4.8-10.8) Red Blood Count 4.27 M/UL (4.20-5.40) Hemoglobin 12.8 G/DL (12.0-16.0) Hematocrit 38.4 % (37.0-47.0) Mean Corpuscular Volume 90 FL (80-99) Mean Corpuscular Hemoglobin 29.9 PG (27.0-31.0) Mean Corpuscular Hemoglobin Concent 33.2 G/DL (32.0-36.0) Red Cell Distribution Width 12.2 % (11.6-14.8) Platelet Count 159 K/UL (150-450) Mean Platelet Volume 11.1 FL (6.5-10.1) H Neutrophils (%) (Auto) 64.5 % (45.0-75.0) Lymphocytes (%) (Auto) 24.7 % (20.0-45.0) Monocytes (%) (Auto) 7.6 % (1.0-10.0) Eosinophils (%) (Auto) 2.2 % (0.0-3.0) Basophils (%) (Auto) 1.0 % (0.0-2.0) Prothrombin Time 10.1 SEC (9.30-11.50) Prothrombin Time INR 1.0 (0.9-1.1) PTT 27 SEC (23-33) Sodium Level 142 MMOL/L (136-145) Potassium Level 4.7 MMOL/L (3.5-5.1) Chloride Level 108 MMOL/L (98-107) H Carbon Dioxide Level 26 MMOL/L (21-32) Anion Gap 8 mmol/L (5-15) Blood Urea Nitrogen 21 mg/dL (7-18) H Creatinine 0.7 MG/DL (0.55-1.30) Estimate Glomerular Filtration Rate mL/min (>60) Glucose Level 128 MG/DL (74-106) H Lactic Acid Level 1.90 mmol/L (0.4-2.0) Calcium Level 9.2 MG/DL (8.5-10.1) Total Bilirubin 0.3 MG/DL (0.2-1.0) Aspartate Amino Transferase (AST) 32 U/L (15-37) Alanine Aminotransferase (ALT) 39 U/L (12-78) Alkaline Phosphatase 107 U/L (46-116) Total Creatine Kinase 122 U/L (26-308) Troponin I 0.000 ng/mL (0.000-0.056) Pro-B-Type Natriuretic Peptide 375 pg/mL (0-125) H Total Protein 6.6 G/DL (6.4-8.2) Albumin 3.0 G/DL (3.4-5.0) L Globulin 3.6 g/dL Albumin/Globulin Ratio 0.8 (1.0-2.7) L Urine Color Pale yellow Urine Appearance Clear Urine pH 6 (4.5-8.0) Urine Specific Henry 1.020 (1.005-1.035) Urine Protein Negative (NEGATIVE) Urine Glucose (UA) Negative (NEGATIVE) Urine Ketones Negative (NEGATIVE) Urine Blood Negative (NEGATIVE) Urine Nitrite Negative (NEGATIVE) Urine Bilirubin Negative (NEGATIVE) Urine Urobilinogen Normal MG/DL (0.0-1.0) Urine Leukocyte Esterase Negative (NEGATIVE) Microbiology Date/Time Source Procedure Growth Status 01/13/19 14:56 Nasal Nares Influenza Types A,B Antigen (KYUNG) - Final Complete EKG Diagnostic Results Rate: normal Rhythm: NSR ST Segments: no acute changes - Left ventricular hypertrophy and PVCs Rhythm Strip Diag. Results EP Interpretation: yes Rhythm: NSR, other - PACs, PVCs and rate of 77 Chest X-Ray Diagnostic Results Chest X-Ray Diagnostic Results : Chest X-Ray Ordered: Yes # of Views/Limited/Complete: 1 View Indication: Other EP Interpretation: Yes Interpretation: no consolidation, no effusion, no pneumothorax Impression: No acute disease - Electronically signed by Thaddeus Das MD Electronically Signed by: Thaddeus Das MD Last Vital Signs Date Time Temp Pulse Resp B/P (MAP) Pulse Ox O2 Delivery O2 Flow Rate FiO2 01/13/19 19:00 98.2 81 16 166/74 99 Room Air Status: improved Disposition: XFER SNF Condition: Stable Scripts Bacitracin (Bacitracin) 28.4 Gm Oint...g. 1 APPLIC TOPIC BID, #20 GM Prov: Thaddeus Das MD 01/13/19 Cephalexin* (KEFLEX*) 500 Mg Capsule 500 MG ORAL EVERY 6 HOURS, #28 CAP Prov: Thaddeus Das MD 01/13/19 Trimethoprim/Sulfamethoxazole 160/800* (BACTRIM DS TABLET*) 1 Each Tablet 1 TAB ORAL Q12H, #14 TAB 0 Refills Prov: Thaddeus Das MD 01/13/19 Thaddeus Das MD Jan 13, 2019 13:54
[2019-01-13 14:32] LABS: EOSINOPHILS % (AUTO) 2.2 % (0.0-3.0); HEMATOCRIT 38.4 % (37.0-47.0); HEMOGLOBIN 12.8 G/DL (12.0-16.0); LYMPHOCYTES % (AUTO) 24.7 % (20.0-45.0); MEAN CORPUSCULAR VOLUME 90 FL (80-99); MONOCYTES % (AUTO) 7.6 % (1.0-10.0); NEUTROPHILS % (AUTO) 64.5 % (45.0-75.0); PLATELET COUNT 159 K/UL (150-450); RED BLOOD COUNT 4.27 M/UL (4.20-5.40); RED CELL DISTRIBUTION WIDTH 12.2 % (11.6-14.8); WHITE BLOOD COUNT 6.8 K/UL (4.8-10.8)
[2019-01-13 14:45] LABS: ANION GAP 8 mmol/L (5-15); BLOOD UREA NITROGEN 21 mg/dL (7-18); CALCIUM 9.2 MG/DL (8.5-10.1); CARBON DIOXIDE 26 MMOL/L (21-32); CHLORIDE 108 MMOL/L (98-107); CREATININE 0.7 MG/DL (0.55-1.30); POTASSIUM 4.7 MMOL/L (3.5-5.1); SODIUM 142 MMOL/L (136-145)
--- NOTE | 2019-01-13 14:49 | NUR ---
ED Nurse Note: REDNESS NOTED ON THE ANTERIOR R ARM
[2019-01-13 14:50] VITALS: BP 153/65
[2019-01-13 14:56] LABS: ALANINE AMINOTRANSFERASE 39 U/L (12-78); ALBUMIN/GLOBULIN RATIO 0.8 (1.0-2.7); ALKALINE PHOSPHATASE 107 U/L (46-116); ASPARTATE AMINO TRANSFERASE 32 U/L (15-37); BILIRUBIN,TOTAL 0.3 MG/DL (0.2-1.0); CREATINE KINASE 122 U/L (26-308)
[2019-01-13 15:17] LABS: APPEARANCE,URINE CLEAR; BILIRUBIN, URINE NEGATIVE (NEGATIVE); COLOR,URINE PALE YELLOW; GLUCOSE, URINE (UA) NEGATIVE (NEGATIVE); KETONES,URINE NEGATIVE (NEGATIVE); LEUKOCYTE ESTERASE ,URINE NEGATIVE (NEGATIVE); NITRITE,URINE NEGATIVE (NEGATIVE); PH,URINE 6 (4.5-8.0); PROTEIN,URINE NEGATIVE (NEGATIVE); UROBILINOGEN,URINE NORMAL MG/DL (0.0-1.0)
--- NOTE | 2019-01-13 15:18 | Diagnostic Imaging Report ---
Indication: Cough Comparison: 10/11/2018 A single view chest radiograph was obtained. Findings: Lungs are clear. Heart size is normal. The aorta is mildly ectatic. Bones are osteopenic. IMPRESSION: No acute disease
[2019-01-13] MEDS ORDERED: Cefepime HCl 1 GM in D5W 55 ML IVPB ONE (16:00)
[2019-01-13] MEDS ORDERED: BACTRIM DS TAB1 EAC1 ORAL (16:12)
[2019-01-13] MEDS ORDERED: BACITRACIN15 GM TOPIC (16:12)
[2019-01-13] MEDS ORDERED: CEPHALEXIN500 MG ORAL (16:12)
[2019-01-13 16:33] VITALS: BP 166/68
--- NOTE | 2019-01-13 16:33 | NUR ---
ED Nurse Note: Pt will be trnsferred back to SNF. Transportation ETA [id number]
--- NOTE | 2019-01-13 16:52 | NUR ---
ED Nurse Note: Spoke to Carolina at [facility] about pt is returnning.
[2019-01-13 17:30] VITALS: BP 163/67
[2019-01-13 19:00] VITALS: BP 166/74
--- NOTE | 2019-01-13 19:00 | NUR ---
ER DISCHARGE NOTE: Patient is cleared to be discharged per ERMD, pt is aox2-3, on room air, with stable vital signs. pt was given dc and prescription instructions, pt was able to verbalize understanding, pt id band and iv site removed without complications. pt left with ALS in stable condition.
== END 2019-01-13 19:00 ==
LOC: EDBD 13:26 → EDUNIT# 13:26 → EMR 14:00 → EDBEDREQ 14:51 → CANBEDREQ 16:07 → EMR 19:00
DX: L03.113 Cellulitis of right upper limb (principal); E86.0 Dehydration; Z23 Encounter for immunization; I10 Essential (primary) hypertension; E11.9 Type 2 diabetes mellitus without complications; F03.90 Unspecified dementia, unspecified severity, without behavioral disturbance, psychotic disturbance, mood disturbance, and anxiety; Z86.73 Personal history of transient ischemic attack (TIA), and cerebral infarction without residual deficits; Z88.8 Allergy status to other drugs, medicaments and biological substances
CPT/HCPCS: 36415; 71045; 80053; 81003; 82550; 83605; 83880; 84484; 85025; 85610; 85730; 86710; 90471; 90715; 93005; 96361; 96365; 99284; J0692